=== PATIENT | male | born 1950 | race Caucasian/White ===

== ENCOUNTER → 2016-11-01 | Outpatient (REF) | payer BC ==
[2016-11-01 17:24] LABS: ANION GAP 9 MEQ/L (8-16); BLOOD UREA NITROGEN 16 MG/DL (7-18); CALCIUM LEVEL 9.6 MG/DL (8.8-10.2); CARBON DIOXIDE LEVEL 28 MEQ/L (21-32); CHLORIDE LEVEL 101 MEQ/L (98-107); CREATININE FOR GFR 1.19 MG/DL (0.70-1.30); GLOMERULAR FILTRATION RATE > 60.0 (>49); GLUCOSE, FASTING 132 MG/DL (80-110); POTASSIUM SERUM 4.7 MEQ/L (3.5-5.1); SODIUM LEVEL 138 MEQ/L (136-145)
== END ==
LOC: M LAB REF 16:14
PROVIDERS: ATTEND Family Medicine
DX: N18.1 Chronic kidney disease, stage 1 (principal); E11.40 Type 2 diabetes mellitus with diabetic neuropathy, unspecified; N40.0 Benign prostatic hyperplasia without lower urinary tract symptoms; G35 Multiple sclerosis

== ENCOUNTER → 2016-11-29 | Outpatient (CLI) | payer BC | LOC: M SMT 11:03 | PROVIDERS: ATTEND Nurse Practitioner Women's Health | DX: Z12.5 Encounter for screening for malignant neoplasm of prostate (principal) | CPT/HCPCS: 36415; G0103 ==

== ENCOUNTER → 2017-02-19 | Outpatient (REF) | payer BC | LOC: M LAB REF 16:24 | PROVIDERS: ATTEND Family Medicine | DX: K21.0 Gastro-esophageal reflux disease with esophagitis (principal); E11.40 Type 2 diabetes mellitus with diabetic neuropathy, unspecified; M25.519 Pain in unspecified shoulder ==

== ENCOUNTER → 2017-02-26 | Outpatient (REF) | payer BC ==
[2017-02-26 19:01] LABS: MICROSCOPIC INDICATED? MAN YES (NO)
[2017-02-26 19:12] LABS: BACTERIA, URINE NONE SEEN; CALCIUM OXALATE CRYSTALS,URINE MOD AMOUNT /hpf; HYALINE CAST, URINE NONE SEEN /lpf (0-1); MICROSCOPIC EXAM PERFORMED; RBC, URINE NONE SEEN /hpf (0-3); SQUAMOUS EPITHELIAL CELL URINE SMALL AMOUNT /hpf (SMALL AMT); WBC, URINE 0-1 /hpf (0-3)
== END ==
LOC: M SMT 16:59
PROVIDERS: ATTEND Nurse Practitioner Women's Health
DX: N40.1 Benign prostatic hyperplasia with lower urinary tract symptoms (principal)

== ENCOUNTER → 2020-06-22 | Outpatient (REF) | payer BC, MEDICARE | LOC: M LAB REF 14:30 | PROVIDERS: ATTEND Dermatology | DX: L57.0 Actinic keratosis (principal) | CPT/HCPCS: 11102; 88305; G0463 ==

== ENCOUNTER → 2023-07-04 | Outpatient (REF) | payer MEDICARE, BC | LOC: SKLAB5 10:06 | PROVIDERS: ATTEND Internal Medicine | DX: M89.8X8 Other specified disorders of bone, other site (principal) ==

== ENCOUNTER → 2023-07-06 | Outpatient (REF) | payer MEDICARE, BC ==
[2023-07-06 07:31] LABS: HEMOGLOBIN 13.9 g/dl (13.5-17.5); MEAN CORPUSCULAR HEMOGLOBIN 29.3 pg (27.0-33.0); MEAN CORPUSCULAR HGB CONC 32.3 g/dl (32.0-36.5); MEAN CORPUSCULAR VOLUME 90.5 fl (80.0-96.0); PLATELET COUNT, AUTOMATED 180 10^3/uL (150-450); RED BLOOD COUNT 4.75 10^6/uL (4.30-6.10); WHITE BLOOD COUNT 7.5 10^3/uL (4.0-10.0)
[2023-07-06 08:02] LABS: ALBUMIN 3.1 G/DL (3.2-5.2); ALKALINE PHOSPHATASE 76 U/L (46-116); ALT/SGPT 34 U/L (7.0-40); AST/SGOT 17 U/L (<34); BILIRUBIN,TOTAL 0.7 MG/DL (0.3-1.2); BLOOD UREA NITROGEN 26 MG/DL (9-23); CALCIUM LEVEL 9.4 MG/DL (8.3-10.6); CARBON DIOXIDE LEVEL 28 MMOL/L (20-31); CHLORIDE LEVEL 101 MMOL/L (98-107); GLOMERULAR FILTRATION RATE > 60.0 (>42); GLUCOSE, FASTING 181 MG/DL (74-106); MAGNESIUM LEVEL 1.7 MG/DL (1.8-2.4); POTASSIUM SERUM 4.7 MMOL/L (3.5-5.1); SODIUM LEVEL 136 MMOL/L (136-145); TOTAL PROTEIN 7.1 G/DL (5.7-8.2)
== END ==
LOC: SKLAB5 08:12
PROVIDERS: ATTEND Internal Medicine
DX: E11.9 Type 2 diabetes mellitus without complications (principal)

== ENCOUNTER → 2023-08-30 | Outpatient (CLI) | payer MEDICARE | LOC: M CARPUL 11:05 | DX: I50.42 Chronic combined systolic (congestive) and diastolic (congestive) heart failure (principal) ==

== ENCOUNTER → 2023-10-04 | Outpatient (CLI) | payer MEDICARE ==
[~2023-10-04] MED LIST: PROHANCE 279.3MG/ML 15ML VIAL As Ordered ONE
== END ==
LOC: M RAD 11:44
PROVIDERS: ATTEND Family Medicine
DX: N28.89 Other specified disorders of kidney and ureter (principal)
CPT/HCPCS: 74183; A9576

== ENCOUNTER 2023-12-19 05:53 | Inpatient (IN) | payer MEDICARE ==
[2023-12-19] VITALS (8 sets, daily range): BP systolic 104–136; BP diastolic 60–90; TEMP 97.5–98.1; O2SAT 92–95
[~2023-12-19] VITALS: Ht 182.9 cm; Wt 79.8 kg
[~2023-12-19 05:53] MED LIST changes: +ATOR80TA59 PO; +CLOP75TA2 PO; +CYAN-11 PO; +DULO1CAP6 PO; +EQL400CA9 PO; +FURO40TA2 PO; +GABA-1171 PO; +JARD1TAB3 PO; +LANTINJ4 SC; +LISI5TAB11 PO; +METO1TAB87 PO; +OXCA600T8 PO; -PROHANCE 279.3MG/ML 15ML VIAL As Ordered ONE; +RA M500C PO; +SLOW160T12 PO; +SPIR-10 PO; +TAMS1CAP17 PO; +UNRESOLVED CLARIFICATION ENTRY XX SCH
[2023-12-19] MEDS ORDERED: NS 1,000 ML IV SCH (06:30)
[2023-12-19] MEDS ORDERED: ONDANSETRON 4MG 2ML VIAL IV PRN ×2 (06:30→11:40)
[2023-12-19] MEDS ORDERED: GLUCOSE 4GM CHEW TABLET PO PRN ×2 (06:35→07:35)
[2023-12-19] MEDS ORDERED: GLUCAGON INJ 1MG VIAL SC PRN ×2 (06:35→07:35)
[2023-12-19] MEDS ORDERED: DEXTROSE 50% 50ML SYRINGE IV PRN ×2 (06:35→07:35)
[2023-12-19] MEDS ORDERED: propofoL 200 MG/20 ML VIAL As Ordered ONE (07:07)
[2023-12-19] MEDS ORDERED: ROCURONIUM BROMIDE 50MG/5ML VIAL As Ordered ONE (07:07)
[2023-12-19] MEDS ORDERED: MIDAZOLAM INJ 2MG/2ML VIAL As Ordered ONE (07:07)
[2023-12-19] MEDS ORDERED: fentaNYL 100 MCG/2 ML INJECTION As Ordered ONE (07:07)
[2023-12-19] MEDS ORDERED: LIDOCAINE 2% 100MG/5ML SDV (FOR ANES.) As Ordered ONE (07:07)
[2023-12-19] MEDS: LR 1,000 ML IV SCH ×2 (07:29→11:40)
[2023-12-19] MEDS: ceFAZolin SOD 2 GM in IV 1 EA IV ONE (07:33)
[2023-12-19] MEDS ORDERED: ETOMIDATE INJ 20MG/10ML VIAL As Ordered ONE (07:38)
[2023-12-19] MEDS ORDERED: PHENYLephrine 500MCG 5ML (100MCG/ML) SYRINGE As Ordered ONE (07:40)
[2023-12-19] MEDS ORDERED: ePHEDrine SULFATE 25 MG/5 ML(5MG/ML) SYRINGE As Ordered ONE (07:40)
[2023-12-19] MEDS ORDERED: METOCLOPRAMIDE INJ 10MG/2ML VIAL As Ordered ONE (08:09)
[2023-12-19] MEDS ORDERED: PHENYLEPHRINE 10MG/ML 1ML VIAL As Ordered ONE (08:26)
[2023-12-19] MEDS ORDERED: MANNITOL 25% 12.5GM 50ML VIAL As Ordered ONE (08:31)
[2023-12-19] MEDS ORDERED: ONDANSETRON 4MG 2ML VIAL As Ordered ONE (08:51)
[2023-12-19] MEDS ORDERED: SUGAMMADEX SODIUM 500 MG/5 ML VIAL (BRIDION) As Ordered ONE (08:51)
[2023-12-19] MEDS ORDERED: HYDROmorphone HCL 2MG/ML 1ML VIAL As Ordered ONE (08:52)
[2023-12-19] MEDS ORDERED: ACETAMINOPHEN 1000MG 100ML IV BAG As Ordered ONE (08:52)
[2023-12-19] MEDS: LIDOCAINE 1% SDV 30ML VIAL As Ordered ONE (11:28)
[2023-12-19] MEDS ORDERED: fentaNYL 100 MCG/2 ML INJECTION IV PRN (11:40)
[2023-12-19] MEDS ORDERED: INSULIN LISPRO (NovoLOG) PER UNIT SC PRN (12:00)
[2023-12-19] MEDS: INSULIN LISPRO (NovoLOG) PER UNIT SC PRN (12:07)
[2023-12-19 12:26] LABS: HEMATOCRIT 46.9 % (42.0-52.0); HEMOGLOBIN 15.4 g/dl (13.5-17.5); MEAN CORPUSCULAR HEMOGLOBIN 31.2 pg (27.0-33.0); MEAN CORPUSCULAR HGB CONC 32.8 g/dl (32.0-36.5); MEAN CORPUSCULAR VOLUME 94.9 fl (80.0-96.0); PLATELET COUNT, AUTOMATED 111 10^3/uL (150-450); RED BLOOD COUNT 4.94 10^6/uL (4.30-6.10); WHITE BLOOD COUNT 8.4 10^3/uL (4.0-10.0)
[2023-12-19] MEDS: PERCOCET 5MG/325MG TAB PO PRN ×2 (12:37→16:38)
[2023-12-19 12:57] LABS: BLOOD UREA NITROGEN 19 MG/DL (9-23); CALCIUM LEVEL 8.8 MG/DL (8.3-10.6); CARBON DIOXIDE LEVEL 27 MMOL/L (20-31); CHLORIDE LEVEL 104 MMOL/L (98-107); CREATININE FOR GFR 1.13 MG/DL (0.70-1.30); GLOMERULAR FILTRATION RATE > 60.0 (>42); GLUCOSE, FASTING 213 MG/DL (74-106); POTASSIUM SERUM 4.8 MMOL/L (3.5-5.1); SODIUM LEVEL 136 MMOL/L (136-145)
[2023-12-19] MEDS: DOCUSATE SODIUM 100MG CAPSULE PO SCH (13:12)
[2023-12-19] MEDS: INSULIN LISPRO (NovoLOG) PER UNIT SC SCH ×2 (13:12→21:00)
[2023-12-19] MEDS: ACETAMINOPHEN TAB 650MG DOSE (2X325MG) PO PRN (13:13)
[2023-12-19] MEDS ORDERED: METO1TAB32 PO (15:09)
[2023-12-19] MEDS ORDERED: HOME MED LIST COMPLETE! XX SCH (15:20)
[2023-12-19] MEDS: ceFAZolin SOD 1 GM in D5W MINI-BAG PLUS 50 ML IV SCH (16:38)
[2023-12-19] MEDS: diphenhydrAMINE 25MG CAP PO PRN (21:23)
[2023-12-19] MEDS: GABAPENTIN 100 MG CAP PO SCH (21:24)
[2023-12-19] MEDS: OXcarbazepine 300 MG TAB PO SCH (21:24)
[2023-12-19] MEDS: DULoxetine 30MG CAPSULE (CYMBALTA) PO SCH (21:25)
[2023-12-19] MEDS: TAMSULOSIN 0.4 MG CAP PO SCH (21:25)
[2023-12-20] VITALS: BP 105/62; TEMP 97.9; O2SAT 92
[2023-12-20] MEDS: NS 1,000 ML IV SCH (06:52)
[2023-12-20 07:00] LABS: HEMATOCRIT 41.5 % (42.0-52.0); HEMOGLOBIN 13.6 g/dl (13.5-17.5); MEAN CORPUSCULAR HEMOGLOBIN 31.3 pg (27.0-33.0); MEAN CORPUSCULAR HGB CONC 32.8 g/dl (32.0-36.5); MEAN CORPUSCULAR VOLUME 95.6 fl (80.0-96.0); RED BLOOD COUNT 4.34 10^6/uL (4.30-6.10); WHITE BLOOD COUNT 7.1 10^3/uL (4.0-10.0)
[2023-12-20 07:25] LABS: BLOOD UREA NITROGEN 20 MG/DL (9-23); CALCIUM LEVEL 8.5 MG/DL (8.3-10.6); CARBON DIOXIDE LEVEL 27 MMOL/L (20-31); CHLORIDE LEVEL 105 MMOL/L (98-107); GLOMERULAR FILTRATION RATE > 60.0 (>42); GLUCOSE, FASTING 167 MG/DL (74-106); POTASSIUM SERUM 4.4 MMOL/L (3.5-5.1); SODIUM LEVEL 137 MMOL/L (136-145)
[2023-12-20 07:29] LABS: PLATELET COUNT, AUTOMATED 91 10^3/uL (150-450)
[2023-12-20 07:47] VITALS: BP 103/63; TEMP 98.8; O2SAT 93
[2023-12-20] MEDS: METOPROLOL SUCC *XL* 25MG TAB (TopROL *XL*) PO SCH (09:00)
[2023-12-20] MEDS: SPIRONOLACTONE 12.5MG PER 1/2 TABLET PO SCH (09:00)
[2023-12-20] MEDS ORDERED: PERCOCET PO (09:22)
[2023-12-20] MEDS ORDERED: COLA100C5 PO (09:22)
[2023-12-20] MEDS: ATORVASTATIN 20 MG TAB PO SCH (09:34)
[2023-12-20] MEDS: FERROUS SULFATE 325MG TAB PO SCH (09:35)
[2023-12-20 14:00] VITALS: BP 101/63; TEMP 98.1; O2SAT 92
[2023-12-20 19:46] VITALS: BP 153/82; TEMP 98.6; O2SAT 91
[2023-12-21 05:14] VITALS: BP 118/71; TEMP 98.2; O2SAT 93
[2023-12-21 07:34] LABS: HEMATOCRIT 40.3 % (42.0-52.0); HEMOGLOBIN 13.4 g/dl (13.5-17.5); MEAN CORPUSCULAR HEMOGLOBIN 31.5 pg (27.0-33.0); MEAN CORPUSCULAR HGB CONC 33.3 g/dl (32.0-36.5); MEAN CORPUSCULAR VOLUME 94.8 fl (80.0-96.0); RED BLOOD COUNT 4.25 10^6/uL (4.30-6.10); WHITE BLOOD COUNT 8.1 10^3/uL (4.0-10.0)
[2023-12-21 07:51] LABS: PLATELET COUNT, AUTOMATED 73 10^3/uL (150-450)
[2023-12-21 07:57] LABS: BLOOD UREA NITROGEN 19 MG/DL (9-23); CALCIUM LEVEL 8.9 MG/DL (8.3-10.6); CARBON DIOXIDE LEVEL 27 MMOL/L (20-31); CHLORIDE LEVEL 102 MMOL/L (98-107); CREATININE FOR GFR 1.06 MG/DL (0.70-1.30); GLOMERULAR FILTRATION RATE > 60.0 (>42); GLUCOSE, FASTING 224 MG/DL (74-106); POTASSIUM SERUM 4.7 MMOL/L (3.5-5.1); SODIUM LEVEL 134 MMOL/L (136-145)
[2023-12-21 08:00] VITALS: BP 115/71; TEMP 97.7; O2SAT 94
[2023-12-21 09:00] VITALS: BP 115/71
[2023-12-21 10:50] VITALS: BP 112/69; TEMP 98.6; O2SAT 94
[2023-12-21 11:46] VITALS: BP 117/71; TEMP 97.7; O2SAT 94
== END 2023-12-21 11:30 | disposition home or self-care (01) | DRG 658 ==
LOC: M OR 05:53 → M MS5PR 12:55
PROVIDERS: ADMIT Urology; ATTEND Urology
PROC: 8E0W4CZ Robotic Assisted Procedure of Trunk Region, Percutaneous Endoscopic Approach (ICD-10-PCS; 2023-12-19)
PROC: 0TB14ZZ Excision of Left Kidney, Percutaneous Endoscopic Approach (ICD-10-PCS; principal; 2023-12-19 07:30)
DX: C64.2 Malignant neoplasm of left kidney, except renal pelvis (principal); E11.9 Type 2 diabetes mellitus without complications; Z79.4 Long term (current) use of insulin; Z79.899 Other long term (current) drug therapy; Z88.0 Allergy status to penicillin

== ENCOUNTER → 2024-01-04 | Outpatient (REF) | payer MEDICARE ==
[~2024-01-04] MED LIST changes: +COLA100C5 PO; +METO1TAB32 PO; +PERCOCET PO; -UNRESOLVED CLARIFICATION ENTRY XX SCH
[2024-01-04 13:53] LABS: APPEARANCE, URINE CLEAR (CLEAR); BACTERIA, URINE AUTO NEGATIVE (NEGATIVE); BILIRUBIN, URINE AUTO NEGATIVE (NEGATIVE); BLOOD, URINE BLOOD NEGATIVE (NEGATIVE); COLOR, URINE YELLOW (YELLOW); GLUCOSE, URINE (UA) AUTO 3+ mg/dL (NEGATIVE); KETONE, URINE AUTO NEGATIVE (NEGATIVE); LEUKOCYTE ESTERASE, URINE AUTO NEGATIVE (NEGATIVE); NITRITE, URINE AUTO NEGATIVE (NEGATIVE); PROTEIN, URINE AUTO NEGATIVE (NEGATIVE); RBC, URINE AUTO 1 /HPF (0-3); SPECIFIC GRAVITY URINE AUTO 1.035 (1.002-1.035); SQUAMOUS EPITHELIAL CELL UR AU 0 /HPF (0-6); UROBILINOGEN, URINE AUTO 0.2 mg/dL (0.0-2.0); WBC, URINE AUTO 0 /HPF (0-3)
== END ==
LOC: M SMT 13:09
PROVIDERS: ATTEND Urology
DX: N39.0 Urinary tract infection, site not specified (principal)

== ENCOUNTER 2024-04-16 13:03 | Day surgery (SDC) | payer MEDICARE ==
[~2024-04-16] VITALS: Ht 185.4 cm; Wt 82.6 kg
[~2024-04-16 13:03] MED LIST changes: +APRE30TA3 PO; +DOCU240C41 PO; +ceFAZolin SOD 2 GM in IV 1 EA IV ONE
[2024-04-16] MEDS ORDERED: CIPR500T39 PO (14:11)
[2024-04-16] MEDS ORDERED: fentaNYL 100 MCG/2 ML INJECTION As Ordered ONE (14:11)
[2024-04-16] MEDS ORDERED: ETOMIDATE INJ 20MG/10ML VIAL As Ordered ONE (14:11)
[2024-04-16] MEDS ORDERED: LIDOCAINE 2% 100MG/5ML SDV (FOR ANES.) As Ordered ONE (14:13)
[2024-04-16] MEDS ORDERED: LR 1,000 ML IV SCH ×2 (14:30→16:05)
[2024-04-16] MEDS: LevoFLOXacin 500MG/100ML IV BAG As Ordered ONE (14:45)
[2024-04-16] MEDS ORDERED: ACETAMINOPHEN 1000MG 100ML IV BAG As Ordered ONE (14:46)
[2024-04-16] MEDS ORDERED: ePHEDrine SULFATE 25 MG/5 ML(5MG/ML) SYRINGE As Ordered ONE (14:49)
[2024-04-16] MEDS ORDERED: PHENYLephrine 500MCG 5ML (100MCG/ML) SYRINGE As Ordered ONE (14:49)
[2024-04-16] MEDS ORDERED: ONDANSETRON 4MG 2ML VIAL As Ordered ONE (14:49)
[2024-04-16] MEDS: LevoFLOXacin IV 500 MG in IV 1 EA IV ONE (15:04)
[2024-04-16] MEDS ORDERED: FUROSEMIDE 100MG/10ML VIAL As Ordered ONE (15:47)
[2024-04-16] MEDS ORDERED: oxyCODONE 5MG TAB PO PRN (16:05)
[2024-04-16] MEDS ORDERED: fentaNYL 100 MCG/2 ML INJECTION IV PRN (16:05)
[2024-04-16] MEDS ORDERED: HYDROMORPHONE HCL 0.5 MG/ 0.5 ML SYRINGE IV PRN (16:05)
[2024-04-16] MEDS ORDERED: ONDANSETRON 4MG 2ML VIAL IV PRN (16:05)
[2024-04-16] MEDS ORDERED: GLUCAGON INJ 1MG VIAL SC PRN (16:15)
[2024-04-16] MEDS ORDERED: DEXTROSE 50% 50ML SYRINGE IV PRN (16:15)
[2024-04-16] MEDS: INSULIN LISPRO (NovoLOG) PER UNIT SC PRN (16:19)
[2024-04-16 16:45] VITALS: BP 133/79; TEMP 98.9; O2SAT 95
== END 2024-04-16 17:22 | disposition home or self-care (01) ==
LOC: M SDC 13:03
PROVIDERS: ATTEND Urology
DX: N40.0 Benign prostatic hyperplasia without lower urinary tract symptoms (principal); E11.9 Type 2 diabetes mellitus without complications; I50.9 Heart failure, unspecified; I11.0 Hypertensive heart disease with heart failure; R06.83 Snoring; Z85.528 Personal history of other malignant neoplasm of kidney; Z88.0 Allergy status to penicillin; Z79.899 Other long term (current) drug therapy; Z79.01 Long term (current) use of anticoagulants; Z79.4 Long term (current) use of insulin
CPT/HCPCS: 52601; J0131; J1100; J1815; J1940; J1956; J2371; J2405; J3010

== ENCOUNTER → 2024-06-06 | Outpatient (CLI) | payer MEDICARE ==
[~2024-06-06] MED LIST changes: +CIPR500T39 PO; -ceFAZolin SOD 2 GM in IV 1 EA IV ONE
== END ==
LOC: M PLARAD 14:52
PROVIDERS: ATTEND Internal Medicine
DX: M19.012 Primary osteoarthritis, left shoulder (principal); M25.512 Pain in left shoulder

== ENCOUNTER → 2024-11-06 | Outpatient (CLI) | payer MEDICARE | LOC: M SOG 07:55 | PROVIDERS: ATTEND Orthopaedic Surgery | DX: M25.552 Pain in left hip (principal); M85.852 Other specified disorders of bone density and structure, left thigh ==

== ENCOUNTER → 2025-01-16 | Outpatient (REF) | payer MEDICARE | LOC: M SFHCDERM 15:27 | PROVIDERS: ATTEND Physician Assistant | DX: C44.529 Squamous cell carcinoma of skin of other part of trunk (principal) ==

== ENCOUNTER → 2025-02-27 | Outpatient (REF) | payer MEDICARE | LOC: M LAB REF 15:00 | PROVIDERS: ATTEND Surgery | DX: C44.529 Squamous cell carcinoma of skin of other part of trunk (principal) ==

== ENCOUNTER → 2025-03-17 | Outpatient (CLI) | payer MEDICARE ==
[~2025-03-17] MED LIST changes: +ELIQ5TAB; +ENTR1TAB; +GABA-1172; +METO1TAB7; +TADA20TA
== END ==
LOC: M PLARAD 10:27
PROVIDERS: ATTEND Specialist
DX: C43.8 Malignant melanoma of overlapping sites of skin (principal); M84.88 Other disorders of continuity of bone, other site
CPT/HCPCS: 78816; A9552

== ENCOUNTER → 2025-03-18 | Outpatient (POV) | payer MEDICARE ==
[~2025-03-18] VITALS: Ht 182.9 cm; Wt 80.9 kg
[2025-03-18 11:01] VITALS: BP 118/68; O2SAT 97
== END ==
LOC: M IRPOV 10:50
PROVIDERS: ATTEND Radiology Diagnostic Radiology
DX: M89.9 Disorder of bone, unspecified (principal); Z79.4 Long term (current) use of insulin; Z79.899 Other long term (current) drug therapy; Z85.820 Personal history of malignant melanoma of skin; Z85.528 Personal history of other malignant neoplasm of kidney; Z88.0 Allergy status to penicillin; Z95.810 Presence of automatic (implantable) cardiac defibrillator

== ENCOUNTER → 2025-09-01 | Outpatient (CLI) | payer MEDICARE ==
[~2025-09-01] MED LIST changes: +ISOVUE-370 76% 100 ML VIAL As Ordered ONE
== END ==
LOC: M RAD 10:05
PROVIDERS: ATTEND Internal Medicine Medical Oncology
DX: M89.9 Disorder of bone, unspecified (principal); Z85.528 Personal history of other malignant neoplasm of kidney; Z85.820 Personal history of malignant melanoma of skin; K76.0 Fatty (change of) liver, not elsewhere classified; N28.1 Cyst of kidney, acquired; K57.90 Diverticulosis of intestine, part unspecified, without perforation or abscess without bleeding; R93.49 Abnormal radiologic findings on diagnostic imaging of other urinary organs; M16.0 Bilateral primary osteoarthritis of hip; M47.815 Spondylosis without myelopathy or radiculopathy, thoracolumbar region; I70.0 Atherosclerosis of aorta; Z95.0 Presence of cardiac pacemaker; I25.10 Atherosclerotic heart disease of native coronary artery without angina pectoris; J98.11 Atelectasis
CPT/HCPCS: 71260; 74177; Q9967